=== PATIENT | female | born 1985 | race Caucasian/White ===

== ENCOUNTER → 2017-01-16 | Outpatient (CLI) | payer BC ==
[~2017-01-16] MED LIST: OMEPRAZOLE20 M1 PO
== END ==
LOC: US 14:15
DX: R13.10 Dysphagia, unspecified (principal)
CPT/HCPCS: 76536

== ENCOUNTER → 2017-01-31 | Day surgery (SDC) | payer BC | END | disposition home or self-care (01) | LOC: OR 07:00 | PROVIDERS: Internal Medicine Gastroenterology | PROC: 0DB68ZX Excision of Stomach, Via Natural or Artificial Opening Endoscopic, Diagnostic (ICD-10-PCS; principal; 2017-01-31 10:30) | DX: K29.50 Unspecified chronic gastritis without bleeding (principal); K21.9 Gastro-esophageal reflux disease without esophagitis; K20.0 Eosinophilic esophagitis; E66.3 Overweight; K52.9 Noninfective gastroenteritis and colitis, unspecified; Z79.899 Other long term (current) drug therapy; Z90.89 Acquired absence of other organs; Z90.49 Acquired absence of other specified parts of digestive tract; Z87.19 Personal history of other diseases of the digestive system | CPT/HCPCS: 84703; J2250; J3010; J7030 ==

== ENCOUNTER → 2021-03-03 | Day surgery (SDC) | payer BC, OTHER ==
[~2021-03-03] MED LIST changes: +ALLEGRA ALLERG180 MG PO; +AZELASTINE137 MCG/0.; +BENTYL 10MG CAP10 MG PO; +COLACE 100MG C100 MG PO; +FLONASE 0.05% N16 GM; +FLOVENT 110.088 GM/I INH; +HYDROCODON-ACE1 EAC4 PO; +IBUPROFEN600 MG PO; +LOMOTIL 2.5-0.1 EACH PO; +NORCO 5-325 TA1 EACH PO; +OMEPRAZOLE20 M2 PO; +OMEPRAZOLE20 MG PO; +PROTONIX40 MG PO; +QVAR8.7 G1 INH; +SINGULAIR10 MG PO; +VENTOLIN HFA 66.7 GM INH; +ZYRTEC10 MG PO
== END | disposition home or self-care (01) ==
LOC: OR 07:33
DX: K20.0 Eosinophilic esophagitis (principal); K21.9 Gastro-esophageal reflux disease without esophagitis; K58.2 Mixed irritable bowel syndrome; Z88.0 Allergy status to penicillin; Z79.899 Other long term (current) drug therapy
CPT/HCPCS: 84703; J2704; J7040

== ENCOUNTER → 2021-04-07 | Outpatient (CLI) | payer BC, OTHER | LOC: NM 04-02 09:00 → RAD 08:00 | DX: R13.14 Dysphagia, pharyngoesophageal phase (principal); K21.9 Gastro-esophageal reflux disease without esophagitis; K22.4 Dyskinesia of esophagus | CPT/HCPCS: 74220 ==

== ENCOUNTER 2021-11-16 19:10 | Emergency (ER) | payer BC ==
[2021-11-17 00:26] LABS: HEMOGLOBIN 13.2 gm/dl (12.3-15.3); RED BLOOD COUNT 4.49 M/UL (4.00-5.10); WHITE BLOOD COUNT 14.8 K/UL (4.5-11.0)
[2021-11-17 00:42] LABS: BUN/CREATININE RATIO 12 (0-10)
[2021-11-17] MEDS ORDERED: PREDNISONE 20 M20 MG PO (02:11)
== END 2021-11-17 03:01 | disposition home or self-care (01) ==
LOC: ER1 19:10
PROVIDERS: Student in an Organized Health Care Education/Training Program
DX: T78.3XXA Angioneurotic edema, initial encounter (principal); T78.1XXA Other adverse food reactions, not elsewhere classified, initial encounter; Z88.0 Allergy status to penicillin; Z91.018 Allergy to other foods
CPT/HCPCS: 80048; 85025; 96372; 96374; 96375; 99284; J0171; J1200; J2930

== ENCOUNTER → 2021-11-27 | Outpatient (CLI) | payer BC ==
[~2021-11-27] MED LIST changes: +PREDNISONE 20 M20 MG PO
[2021-11-27 10:12] LABS: HEMOGLOBIN 13.2 gm/dl (12.3-15.3); RED BLOOD COUNT 4.42 M/UL (4.00-5.10); WHITE BLOOD COUNT 8.6 K/UL (4.5-11.0)
[2021-11-27 10:37] LABS: BUN/CREATININE RATIO 10 (0-10)
[2021-11-30 07:11] LABS: TRYPTASE 3.9 ug/L (2.2-13.2)
== END ==
LOC: LAB 09:41
PROVIDERS: Allergy & Immunology
DX: J30.1 Allergic rhinitis due to pollen (principal); T78.3XXA Angioneurotic edema, initial encounter; K20.0 Eosinophilic esophagitis; J30.89 Other allergic rhinitis
CPT/HCPCS: 36415; 80053; 83520; 84443; 85025; 85652; 86160; 86161

== ENCOUNTER → 2021-12-23 | Outpatient (CLI) | payer BC ==
[2021-12-23 12:38] LABS: HEMOGLOBIN 12.6 gm/dl (12.3-15.3); RED BLOOD COUNT 4.25 M/UL (4.00-5.10); WHITE BLOOD COUNT 7.6 K/UL (4.5-11.0)
[2021-12-24 07:11] LABS: RHEUMATOID ARTHRITIS FACTOR <10.0 IU/mL (<14.0)
[2021-12-24 08:15] LABS: HBSAG SCREEN Negative (Negative); HCV ANTIBODY <0.1 (0.0-0.9)
[2021-12-24 13:15] LABS: ANTI-DSDNA ANTIBODIES 3 IU/mL (0-9); SJOGREN'S ANTI-SS-A <0.2 AI (0.0-0.9); SJOGREN'S ANTI-SS-B <0.2 AI (0.0-0.9); SMITH ANTIBODIES <0.2 AI (0.0-0.9)
[2021-12-24 15:15] LABS: A/G RATIO 1.2 (0.7-1.7); ALBUMIN 4.3 g/dL (2.9-4.4); ALPHA-1-GLOBULIN 0.3 g/dL (0.0-0.4); ALPHA-2-GLOBULIN 0.7 g/dL (0.4-1.0); GAMMA GLOBULIN 1.7 g/dL (0.4-1.8); GLOBULIN, TOTAL 3.7 g/dL (2.2-3.9); IMMUNOGLOBULIN A, QN, SERUM 286 mg/dL (87-352); IMMUNOGLOBULIN G, QN, SERUM 1611 mg/dL (586-1602); IMMUNOGLOBULIN M, QN, SERUM 186 mg/dL (26-217); M-SPIKE Not Observed g/dL (Not Observed)
[2021-12-24 17:09] LABS: ATYPICAL PANCA <1:20 titer (Neg:<1:20); CYTOPLASMIC (C-ANCA) <1:20 titer (Neg:<1:20); PERINUCLEAR (P-ANCA) <1:20 titer (Neg:<1:20)
== END ==
LOC: LAB 11:50
PROVIDERS: Allergy & Immunology
DX: T78.3XXA Angioneurotic edema, initial encounter (principal); R79.9 Abnormal finding of blood chemistry, unspecified
CPT/HCPCS: 36415; 82595; 82784; 84155; 84165; 85025; 85652; 86038; 86140; 86162; 86225; 86235; 86256; 86334; 86431; 86803; 87340

== ENCOUNTER → 2022-05-09 | Outpatient (CLI) | payer BC | LOC: CT 09:59 | DX: R14.0 Abdominal distension (gaseous) (principal); R10.9 Unspecified abdominal pain; R63.4 Abnormal weight loss; K76.0 Fatty (change of) liver, not elsewhere classified; N83.201 Unspecified ovarian cyst, right side | CPT/HCPCS: Q9967 ==